=== PATIENT | male | born 1970 | race Caucasian/White ===

== ENCOUNTER 2020-07-23 05:48 | Day surgery (SDC) | payer MEDICAID ==
[2020-07-23] VITALS (10 sets, daily range): BP systolic 101–141; BP diastolic 64–100
[~2020-07-23] VITALS: Ht 162.6 cm; Wt 126.0 kg
[~2020-07-23 05:48] MED LIST: ALBU17AE26 INH; AMIT-189 PO; BUDE10.27 PO; LAMO100T PO; LORA-268 PO; MONT10TA97 PO; SERT100T10 PO; TRAZ-251 PO; TRIA1TAB3 PO; ceFAZolin inj. 3,000 MG in normal saline 100ml IV soln 100 ML IV ONE; famotidine 20mg tablet PO ONE; ringers solution, lacted 1,000 ML IV SCH
[2020-07-23] MEDS ORDERED: LIDOcaine 1% 30ml preserv. free vial ONE (08:09)
[2020-07-23 08:10] LABS: BASOPHILS # (AUTO) 0.1 X10'3 (0-0.2); BASOPHILS % (AUTO) 1.1 % (0-1); EOSINOPHILS # (AUTO) 0.2 X10'3 (0-0.9); EOSINOPHILS % (AUTO) 2.3 % (0-6); LYMPHOCYTES # (AUTO) 2.4 X10'3 (1.1-4.8); LYMPHOCYTES % (AUTO) 32.9 % (21-51); MEAN CORPUSCULAR HEMOGLOBIN 30.7 PG (27.0-31.0); MEAN CORPUSCULAR HGB CONC 34.2 g/dL (33.0-36.5); MEAN CORPUSCULAR VOLUME 89.9 FL (78-98); MEAN PLATELET VOLUME 7.9 FL (7.4-10.4); MONOCYTES # (AUTO) 0.6 X10'3 (0-0.9); MONOCYTES % (AUTO) 8.5 % (2-12); NEUTROPHILS % (AUTO) 55.2 % (42-75); PRE OP HEMATOCRIT 45.3 % (42.0-52.0); PRE OP HEMOGLOBIN 15.5 g/dL (14.0-17.9); PRE OP PLATELET COUNT 300 X10'3 (140-440); RED BLOOD COUNT 5.03 X10'6 (4.70-6.10); RED CELL DISTRIBUTION WIDTH 13.5 % (11.5-14.5)
[2020-07-23 08:22] LABS: ALBUMIN 4.1 G/DL (3.4-5.0); ALBUMIN/GLOBULIN RATIO 1.2 (1.1-1.5); ALKALINE PHOSPHATASE 74 IU/L (46-116); BLOOD UREA NITROGEN 12 MG/DL (7-18); BUN/CREATININE RATIO 13.8 (5.4-32.0); CALCIUM 8.9 MG/DL (8.5-10.1); CHLORIDE 102 MMOL/L (99-107); CREATININE 0.87 MG/DL (0.60-1.10); PRE OP ALT 70 U/L (30-65); PRE OP ANION GAP 10 (8-16); PRE OP AST 43 U/L (10-37); PRE OP BILIRUB, TOTAL 1.1 MG/DL (0.0-1.0); PRE OP GLUCOSE 107 MG/DL (70-104); PRE OP SODIUM 141 MMOL/L (135-145); TOTAL CARBON DIOXIDE 29.1 MMOL/L (24-32); TOTAL PROTEIN 7.6 G/DL (6.4-8.2); eGFR > 90 ML/MIN
[2020-07-23 08:30] LABS: PRE OP POTASSIUM 3.2 MMOL/L (3.4-5.1)
[2020-07-23] MEDS ORDERED: BUPIVAcaine/PF 2.5mg/ml (0.25%) 10ml vial ONE ×2 (08:50→08:54)
[2020-07-23] MEDS ORDERED: fentaNYL/PF 50MCG/1 ML 2ML syringe ONE (09:13)
[2020-07-23] MEDS ORDERED: MIDAZolam 5mg/5ml vial ONE (09:14)
[2020-07-23] MEDS ORDERED: ketorolac trometh. 30mg/ml inj. ONE (09:32)
--- NOTE | 2020-07-23 09:40 | NUR ---
Received from OR via , accompanied by Anesthesiologist DR CARO and report given by Anesthesiolgist. PT IS AWAKE, NEEDS ORIENTATION, MOVING EXT X 4, SKIN WARM AND PINK, NO C/O PAIN, VSS. RIGHT WRIST WITH SPLINT AND KARTHIK WRAP.
--- NOTE | 2020-07-23 10:36 | NUR ---
PT IS AWAKE, ALERT, RIGHT HAND GOOD COLOR, MOTION, TEMP, NO C/O PAIN, CHRISTEL FLUIDS, IV REMOVED, PT VERBALIZED UNDERSTANDING OF DISCHARGE INSTRUCTIONS. VERBAL AND WRITTEN INSTRUCTIONS GIVEN, EDUCATED PT THE IMPORTANCE OF USING HIS CPAP MACHINE NEXT 24 HOURS AT ALL TIMES EXCEPT WHEN UP WALKING OR EATING. WRITTEN AND HIGHLIGHTED THAT INSTRUCTION ON D/C PAPERWORK. UP TO CHANGE AND TO W/C INDEP'LY, TO PRIVATE VEHICLE VIA W/C WITH VOLUNTEER.
[2020-07-23] MEDS ORDERED: BUPIVAcaine/PF 2.5mg/ml (0.25%) 10ml vial IJ ONE (15:06)
== END 2020-07-23 10:40 | disposition home or self-care (01) ==
LOC: PAS 05:48
PROVIDERS: ATTEND Orthopaedic Surgery Hand Surgery
DX: G56.01 Carpal tunnel syndrome, right upper limb (principal); Z20.822 Contact with and (suspected) exposure to COVID-19; F41.9 Anxiety disorder, unspecified; F31.9 Bipolar disorder, unspecified; K76.0 Fatty (change of) liver, not elsewhere classified; E66.01 Morbid (severe) obesity due to excess calories; Z87.891 Personal history of nicotine dependence; Z79.899 Other long term (current) drug therapy; Z98.890 Other specified postprocedural states
CPT/HCPCS: 36415; 64721; 80053; 85025; 87426; 93005; J0690; J1885; J2001; J2250; J3010; J3490; A4215; J7120

== ENCOUNTER 2020-08-20 05:39 | Day surgery (SDC) | payer MEDICAID ==
[~2020-08-20] VITALS: Ht 162.6 cm; Wt 131.5 kg
[~2020-08-20 05:39] MED LIST changes: +MONT10TA32 PO; -MONT10TA97 PO; +SERT-434 PO; -SERT100T10 PO; +albuterol 2.5 MG/3 ML nebule NEB ONE
[2020-08-20 05:45] VITALS: BP 127/75
[2020-08-20] MEDS ORDERED: LIDOcaine 1% (10mg/ml) 2ml vial ONE (06:10)
[2020-08-20] MEDS ORDERED: BUPIVAcaine/PF 2.5mg/ml (0.25%) 10ml vial ONE (06:40)
[2020-08-20 06:54] LABS: BASOPHILS # (AUTO) 0.1 X10'3 (0-0.2); EOSINOPHILS # (AUTO) 0.2 X10'3 (0-0.9); HEMATOCRIT 40.4 % (42.0-52.0); LYMPHOCYTES # (AUTO) 2.5 X10'3 (1.1-4.8); LYMPHOCYTES % (AUTO) 33.6 % (21-51); MEAN CORPUSCULAR HEMOGLOBIN 31.2 PG (27.0-31.0); MEAN CORPUSCULAR HGB CONC 34.6 g/dL (33.0-36.5); MEAN CORPUSCULAR VOLUME 90.4 FL (78-98); MEAN PLATELET VOLUME 7.6 FL (7.4-10.4); MONOCYTES # (AUTO) 0.6 X10'3 (0-0.9); MONOCYTES % (AUTO) 7.8 % (2-12); NEUTROPHILS # (AUTO) 4.1 X10'3 (1.8-7.7); NEUTROPHILS % (AUTO) 54.6 % (42-75); PLATELET COUNT 270 X10'3 (140-440); RED BLOOD COUNT 4.47 X10'6 (4.70-6.10); RED CELL DISTRIBUTION WIDTH 13.3 % (11.5-14.5); WHITE BLOOD COUNT 7.5 X10'3 (4.5-11.0)
[2020-08-20] MEDS ORDERED: midazolam 1 mg/ML 2ml injection ONE (07:11)
[2020-08-20] MEDS ORDERED: fentaNYL/PF 50MCG/1 ML 2ML syringe ONE (07:11)
[2020-08-20] MEDS ORDERED: LIDOcaine 0.5% (5mg/ml) 50ml vial ONE (07:12)
[2020-08-20 07:40] VITALS: BP 104/67
--- NOTE | 2020-08-20 07:40 | NUR ---
Received from OR via BED, accompanied by Anesthesiologist DR ROSALES and report given by Anesthesiolgist. PATIENT A&OX4, DENIES PAIN, V/S WNL, NEUROVASCULAR CHECKS INTACT, 20G PIV LUE, SCD ON, DRESSING TO left WRIST CDI ELEVATED WITH ICEBAG APPLIEDr
[2020-08-20 07:50] VITALS: BP 118/69
[2020-08-20 08:00] VITALS: BP 114/64
[2020-08-20 08:10] VITALS: BP 111/69
--- NOTE | 2020-08-20 08:10 | NUR ---
PATIENT A&OX4, DENIES PAIN, V/S WNL, NEUROVASCULAR CHECKS INTACT, 20G PIV RUE D/C, SCD OFF, DRESSING TO LEFT WRIST CDI ELEVATED WITH ICEBAG APPLIED. I HAVE REVIEWED D/C INSTRUCTIONS WITH PATIENT AND FAMILY AND THEY HAVE VERBALIZED UNDERSTANDING. PATIENT D/C HOME WITH ALL BELONGINGS AND FAMILY GAVE TRANSPORT HOMER
== END 2020-08-20 08:10 | disposition home or self-care (01) ==
LOC: PAS 05:39
PROVIDERS: ATTEND Orthopaedic Surgery Hand Surgery
DX: G56.02 Carpal tunnel syndrome, left upper limb (principal); G47.30 Sleep apnea, unspecified; I10 Essential (primary) hypertension; F31.9 Bipolar disorder, unspecified; F41.9 Anxiety disorder, unspecified; E66.01 Morbid (severe) obesity due to excess calories; Z68.42 Body mass index [BMI] 45.0-49.9, adult; Z20.822 Contact with and (suspected) exposure to COVID-19; Z98.890 Other specified postprocedural states; Z87.891 Personal history of nicotine dependence; Z79.899 Other long term (current) drug therapy; Z82.49 Family history of ischemic heart disease and other diseases of the circulatory system
CPT/HCPCS: 36415; 64721; 85025; 87426; J0690; J2001; J2250; J3010; J3490; A4215; J7120

== ENCOUNTER 2021-09-08 10:06 | Day surgery (SDC) | payer MEDICARE, MEDICAID ==
[2021-08-31 17:10] LABS: BASOPHILS # (AUTO) 0.1 X10'3 (0-0.2); BASOPHILS % (AUTO) 0.8 % (0-1); EOSINOPHILS # (AUTO) 0.2 X10'3 (0-0.9); LYMPHOCYTES # (AUTO) 2.7 X10'3 (1.1-4.8); LYMPHOCYTES % (AUTO) 26.9 % (21-51); MEAN CORPUSCULAR HEMOGLOBIN 29.1 PG (27.0-31.0); MEAN CORPUSCULAR HGB CONC 33.1 g/dL (33.0-36.5); MEAN CORPUSCULAR VOLUME 87.7 FL (78-98); MEAN PLATELET VOLUME 7.6 FL (7.4-10.4); MONOCYTES # (AUTO) 0.7 X10'3 (0-0.9); MONOCYTES % (AUTO) 7.2 % (2-12); NEUTROPHILS # (AUTO) 6.3 X10'3 (1.8-7.7); NEUTROPHILS % (AUTO) 63.1 % (42-75); PRE OP HEMATOCRIT 44.5 % (42.0-52.0); PRE OP HEMOGLOBIN 14.7 g/dL (14.0-17.9); PRE OP PLATELET COUNT 297 X10'3 (140-440); RED BLOOD COUNT 5.07 X10'6 (4.70-6.10); RED CELL DISTRIBUTION WIDTH 13.7 % (11.5-14.5)
[2021-08-31 17:24] LABS: ALBUMIN 4.1 G/DL (3.4-5.0); ALBUMIN/GLOBULIN RATIO 1.1 (1.1-1.5); ALKALINE PHOSPHATASE 91 IU/L (46-116); BLOOD UREA NITROGEN 9 MG/DL (7-18); CHLORIDE 105 MMOL/L (99-107); CREATININE 0.82 MG/DL (0.60-1.10); PRE OP ALT 46 U/L (30-65); PRE OP ANION GAP 13 (8-16); PRE OP AST 24 U/L (10-37); PRE OP BILIRUB, TOTAL 0.9 MG/DL (0.0-1.0); PRE OP GLUCOSE 104 MG/DL (70-104); PRE OP POTASSIUM 3.4 MMOL/L (3.4-5.1); PRE OP SODIUM 144 MMOL/L (135-145); TOTAL CARBON DIOXIDE 26.2 MMOL/L (24-32); TOTAL PROTEIN 7.8 G/DL (6.4-8.2); eGFR > 90 ML/MIN
[~2021-09-08] VITALS: Ht 162.6 cm; Wt 147.4 kg
[2021-09-08] VITALS (10 sets, daily range): BP systolic 120–149; BP diastolic 80–106
[~2021-09-08 10:06] MED LIST changes: +DOCUMENT DATE & TIME OF BETA-BLOCKER PO ONE; +METO-384 PO; -MONT10TA32 PO; -SERT-434 PO; +SERT100T PO; -TRIA1TAB3 PO; -albuterol 2.5 MG/3 ML nebule NEB ONE; +vancomycin/NS 1 GM in NS 250 ML IV ONE
[2021-09-08] MEDS ORDERED: morphine 2 MG/ML inj. syringe IV PRN (13:10)
[2021-09-08] MEDS ORDERED: acetaminophen 1,000mg/100ml IV 100 ML IV PRN (13:10)
[2021-09-08] MEDS ORDERED: ringers solution, lacted 1,000 ML IV SCH (13:10)
[2021-09-08] MEDS ORDERED: morphine 4 MG/ML inj SYRINge IV PRN (13:10)
[2021-09-08] MEDS ORDERED: labetalol 20mg/4ml (5mg/ml) syringe IV PRN (13:10)
[2021-09-08] MEDS ORDERED: proCHLORperazine 10 MG/2 ml inj IV PRN (13:10)
[2021-09-08] MEDS ORDERED: ondansetron/PF 4mg/2ml inj IV PRN (13:10)
[2021-09-08] MEDS ORDERED: ketorolac trometh. 30mg/ml inj. IV ONE (13:10)
[2021-09-08] MEDS ORDERED: hydrALAZINE 20mg/ml inj. IV PRN (13:10)
[2021-09-08] MEDS ORDERED: HYDROmorphone/PF 0.2 MG/ML SYRINGE IV PRN ×2 (13:10)
[2021-09-08] MEDS ORDERED: meperidine/PF 25mg/ml syringe IV PRN (13:10)
[2021-09-08] MEDS ORDERED: triamcinolone acetonide 40mg/ml inj ONE ×2 (13:30→14:52)
[2021-09-08] MEDS ORDERED: BUPIVAcaine 0.5% inj/PF 30 ML ONE ×2 (13:30→14:57)
[2021-09-08] MEDS ORDERED: fentaNYL /PF 50mcg/ml 5ml ampule ONE (13:57)
[2021-09-08] MEDS ORDERED: midazolam 1 mg/ML 2ml injection ONE (13:57)
[2021-09-08] MEDS ORDERED: ondansetron/PF 4mg/2ml inj ONE (14:29)
[2021-09-08] MEDS ORDERED: dexamethasone sod phosphate 4mg/ml inj. ONE (14:29)
[2021-09-08] MEDS ORDERED: rocuronium 10mg/ml inj IV ONE (14:29)
[2021-09-08] MEDS ORDERED: propofol inj 20 ML IV ONE ×2 (14:29)
[2021-09-08] MEDS ORDERED: LIDOcaine 2% (20mg/ml) 5ml vial ONE (14:29)
[2021-09-08] MEDS ORDERED: phenylephrine 10mg/ml inj. ONE (15:09)
[2021-09-08] MEDS ORDERED: BUPIVAcaine 0.5% inj/PF 30 ml vial IJ ONE (15:18)
[2021-09-08] MEDS ORDERED: morphine 10mg/ml inj. ONE (15:37)
[2021-09-08] MEDS ORDERED: ePHEDrine 50MG/ML INJ. ONE (15:50)
[2021-09-08] MEDS ORDERED: albuterol 60 PUFF/8GM Inhaler IH ONE (16:01)
--- NOTE | 2021-09-08 16:05 | NUR ---
Received from OR via [facility], accompanied by Anesthesiologist DR CARTWRIGHT and report given by Anesthesiolgist. PT PRESENTS WITH PIV 20G LEFT HAND, BILATERAL KNEE DRESSING CDI, ORAL AIRWAY, VSS. Addendum: 09/08/21 at 1621 by Amy Hillman RN, RN Amended: Links added.
--- NOTE | 2021-09-08 17:25 | NUR ---
PATIENT DISCHARGED FROM PACU IN STABLE CONDITION AFTER WRITTEN AND VERBAL DISCHARGE INSTRUCTIONS GIVEN. PATIENT GAVE VERBAL UNDERSTANDING OF INSTRUCTIONS GIVEN. PATIENT LEFT WITH 2 ICE BAGS FOR KNEES ON THE RIDE HOME APROX 1 HOUR. PATIENT LEFT FACILITY VIA WHEELCHAIR WITH RN. PT HOME WITH CAB SERVICE. Addendum: 09/08/21 at 1752 by Amy Hillman RN, RN Amended: Links added.
== END 2021-09-08 17:25 | disposition home or self-care (01) ==
LOC: PAS 10:06
PROVIDERS: ATTEND Orthopaedic Surgery
DX: S83.242A Other tear of medial meniscus, current injury, left knee, initial encounter (principal); S83.272A Complex tear of lateral meniscus, current injury, left knee, initial encounter; S83.271A Complex tear of lateral meniscus, current injury, right knee, initial encounter; S83.231A Complex tear of medial meniscus, current injury, right knee, initial encounter; M17.0 Bilateral primary osteoarthritis of knee; M94.262 Chondromalacia, left knee; M94.261 Chondromalacia, right knee; G47.33 Obstructive sleep apnea (adult) (pediatric); I10 Essential (primary) hypertension; F31.81 Bipolar II disorder; F41.9 Anxiety disorder, unspecified; G89.4 Chronic pain syndrome; E66.01 Morbid (severe) obesity due to excess calories; Z68.43 Body mass index [BMI] 50.0-59.9, adult; Z79.899 Other long term (current) drug therapy; Z87.891 Personal history of nicotine dependence; Z98.890 Other specified postprocedural states; Z20.822 Contact with and (suspected) exposure to COVID-19; X58.XXXA Exposure to other specified factors, initial encounter; Y93.89 Activity, other specified; Y92.89 Other specified places as the place of occurrence of the external cause; Y99.8 Other external cause status
CPT/HCPCS: 29873; 29879; 29880; 36415; 80053; 82948; 85025; 93005; J0690; J1100; J2250; J2274; J2370; J2405; J2704; J3010; J3301; J3370; J3490; J7120; S0020; U0003; U0005; Z7506; Z7508; Z7512; A4215; A4618; A6250; A6449; A7000